=== PATIENT | male | born 1985 | race Caucasian/White ===

== ENCOUNTER → 2019-10-23 12:49 | Outpatient (CLI) | payer OTHER, SELFPAY ==
--- NOTE | ~2019-10-23 | XR_ITS ---
XR lumbar spine 2-3V DATE: 10/23/2019 13:35 INDICATION: Low back pain TECHNIQUE: AP, lateral, coned lateral lumbosacral views COMPARISON: None FINDINGS: No fracture or spondylolisthesis. The included lower thoracic and lumbar pedicles are intac t. Lumbar and lumbosacral interspaces are well preserved. The sacroiliac joints are normal. IMPRESSION: Negative Reviewed, dictated and finalized at location A. IMPRESSION: Negative
== END ==
PROVIDERS: PCP Nurse Practitioner Family; Visit Provider Nurse Practitioner Family
DX: M54.5 Low back pain (principal)
CPT/HCPCS: 72100